=== PATIENT | male | born 1960 | race Caucasian/White ===

== ENCOUNTER 2018-12-30 08:58 | Day surgery (SDC) | payer BC ==
[~2018-12-30] VITALS: Ht 175.3 cm; Wt 75.7 kg
[~2018-12-30 08:58] MED LIST: Aspirin EC81 MG PO; LISI20 PO; Lipitor20 MG PO; Multiple Vitam1 EAC1 PO; TIMO.5OPSO BOTHEYES
== END 2018-12-30 11:19 | disposition home or self-care (01) ==
LOC: ORSCSDS 08:58
PROVIDERS: Surgery
PROC: 0DJD8ZZ Inspection of Lower Intestinal Tract, Via Natural or Artificial Opening Endoscopic (ICD-10-PCS; principal; 2018-12-30 10:15)
DX: Z12.11 Encounter for screening for malignant neoplasm of colon (principal); K57.30 Diverticulosis of large intestine without perforation or abscess without bleeding; Z86.010 Personal history of colon polyps; Z79.899 Other long term (current) drug therapy; Z87.891 Personal history of nicotine dependence; E78.5 Hyperlipidemia, unspecified
CPT/HCPCS: J2704; J7120

== ENCOUNTER → 2022-05-20 | Outpatient (CLI) | payer OTHER | END | disposition home or self-care (01) | LOC: LAB SHORT 07:59 → LAB 07:59 | DX: L08.0 Pyoderma (principal) | CPT/HCPCS: 87070; 87077; 87147; 87186; 87205 ==